=== PATIENT | female | born 1970 | race Caucasian/White ===

== ENCOUNTER → 2020-11-06 11:03 | Outpatient (CLI) | payer OTHER, SELFPAY ==
--- NOTE | 2020-11-06 11:05 | DI.MRI.S_ITS ---
PROCEDURE: MR SHOULDER RT WO CON INDICATIONS: Progressive impairment right shoulder suspect rotator cuff t TECHNIQUE: Noncontrast oblique coronal T2 fast spin echo with fat saturation, oblique sagittal T1 spin echo and T2 fast spin echo with fat saturation, axial T1 spin echo and T2 fast spin echo with fat saturation through the shoulder. COMPARISON: None. FINDINGS: Image quality: Excellent. Rotator cuff: Tendinosis and low-grade articular and bursal surface partial thickness tear involving distal supraspinatus at its insertion on the humeral head is seen extending to musculotendinous junction. Distal infraspinatus and subscapularis tendons are intact. No full-thickness rotator cuff tendon rupture. Sagittal images demonstrate no significant muscle atrophy. Bones and bursae: No bone marrow contusions or fractures. Mild acromioclavicular joint osteoarthritic changes are seen with small downward osteophyte formation depressing on musculotendinous junction of supraspinatus. Trace amount of subacromial subdeltoid bursal fluid is seen. Capsule and soft tissues: There is suggestion of superior anterior labral tear at 12 to 1 o'clock position. The glenohumeral ligaments are intact. The long head of the biceps tendon demonstrates normal location and morphology. The rotator interval appears normal, without fibrosis. The coracohumeral ligament is normal in thickness. IMPRESSION: 1. Tendinosis and low-grade articular and bursal surface partial thickness tear involving distal supraspinatus extending to musculotendinous junction. No full-thickness rotator cuff tendon rupture. 2. Mild osteoarthritis involving acromioclavicular joint as above. Trace amount of subacromial subdeltoid bursal fluid. 3. Suggestion of superior anterior labral tear at 12 to 1 o'clock position. Dictated by: Keith Bateman M.D. on 11/06/2020 at 13:33 Approved by: Keith Bateman M.D. on 11/06/2020 at 13:41
== END ==
PROVIDERS: PCP Family Medicine; Referring Provider Family Medicine; Visit Provider Family Medicine
DX: M75.101 Unspecified rotator cuff tear or rupture of right shoulder, not specified as traumatic (principal); M77.8 Other enthesopathies, not elsewhere classified; M19.011 Primary osteoarthritis, right shoulder
CPT/HCPCS: 73221

== ENCOUNTER → 2023-05-28 10:05 | Outpatient (CLI) | payer OTHER, SELFPAY ==
[2023-05-28 19:56] LABS: BUN Creatinine Ratio 18.6 (6-22); Blood Urea Nitrogen 11 mg/dL (7-17); Calcium 9.4 mg/dL (8.4-10.2); Carbon Dioxide 27 mmol/L (22-32); Chloride 106 mmol/L (98-107); Cholesterol 191 mg/dL (140-199); Estimated Glomerular Filt Rate > 60 mL/min (>60); Glucose 99 mg/dL (70-100); HDL Cholesterol 77 mg/dL (40-60); HEMOLYSIS < 15 (0-50); LDL Cholesterol Calculated 104 mg/dL (<100); Potassium 4.4 mmol/L (3.4-5.1); Sodium 137 mmol/L (137-145); Triglycerides 51 mg/dL (35-150)
== END ==
PROVIDERS: PCP Family Medicine; Visit Provider Family Medicine
DX: Z13.6 Encounter for screening for cardiovascular disorders (principal); Z13.1 Encounter for screening for diabetes mellitus
CPT/HCPCS: 80048; 80061

== ENCOUNTER → 2023-06-17 14:41 | Outpatient (CLI) | payer OTHER, SELFPAY ==
--- NOTE | 2023-06-17 14:42 | DI.MG.S_ITS ---
BILATERAL DIGITAL SCREENING MAMMOGRAM 3D/2D WITH CAD: 06/17/2023 CLINICAL: Routine screening. Family history of breast cancer. Comparison is made to exams dated: 11/04/2021 mammogram and 11/04/2020 mammogram - outside location. Both breasts are extremely dense, which lowers the sensitivity of mammography (category d />75% glandular tissue). Current study was also evaluated with a Computer Aided Detection (CAD) system. No significant masses, calcifications, or other findings are seen in either breast. There has been no significant interval change. IMPRESSION: NEGATIVE There is no mammographic evidence of malignancy. A 1 year screening mammogram is recommended. Based on Tyrer-Cuzick model (a risk assessment model), the patient's lifetime risk is 33.7% and her 10 year risk is 9.2%. If a patient has an elevated risk, a more comprehensive evaluation should be considered and/or a referral to a genetic counselor. The [employer] [employer], [employer], and NCCN Guidelines advise the consideration of Breast MRI as an adjunct to screening mammography in patients whose Lifetime risk to develop breast cancer is 20% or higher. This exam was interpreted at Station ID: [id number]. NOTE: For mammograms, a report in lay terms will be sent to the patient. Approximately 15% of breast malignancies will not be visualized mammographically. In the management of a palpable breast mass, a negative mammogram must not discourage biopsy of a clinically suspicious lesion. Electronically Signed By: Amelia mcguire/[email or web address]:06/21/2023 13:08:55 letter sent: Normal Exam ACR BI-RADS Category 1: Negative [id number]
== END ==
PROVIDERS: PCP Family Medicine; Referring Provider Family Medicine; Visit Provider Family Medicine
DX: Z12.31 Encounter for screening mammogram for malignant neoplasm of breast (principal); Z80.3 Family history of malignant neoplasm of breast
CPT/HCPCS: 77063; 77067

== ENCOUNTER 2023-08-10 06:47 | Day surgery (SDC) | payer OTHER, SELFPAY ==
[2023-08-10 07:20] VITALS: BP 117/74; PULSE 77; RESP 17; TEMP 37; O2SAT 99
[2023-08-10] MEDS: LACTATED RINGERS 1,000 ML 42 ML IV (07:28)
--- NOTE | 2023-08-10 07:44 | P.HP_ITS ---
History of Present Illness History of Present Illness Date Patient Seen: 08/10/23 Time Patient Seen: 07:44 Chief complaint: Screening Colonoscopy Narrative: 52-year-old woman here for 1st time screening colonoscopy. No family history of colon cancer. 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 Pt has 1 beer in the afternoon FHX: 2 siblings with addiction issues mom losing memory + alcohol dad first AR at 40yo. + smoker. + etoh. + heart transplant. of lung cancer sister with breast cancer at 50 yo 05/2023 Meds Home Medications and Allergies Home Medications Medication Instructions Recorded Confirmed Type acyclovir 400 mg tablet 400 mg PO 3XD #21 tabs 06/18/23 08/10/23 Rx fluticasone 250 mcg-salmeterol 50 1 inh inhalation BID #60 ea 08/04/23 08/10/23 Rx mcg/dose blistr powdr for inhalation (Advair Diskus) Allergies Allergy/AdvReac Type Severity Reaction Status Date / Time No Known Drug Allergies Allergy Verified 08/10/23 07:11 Exam Vital Signs (past 8 hours): - 08/10/23 07:20 Temperature 98.6 F Pulse Rate 77 Respiratory Rate 17 Blood Pressure 117/74 Pulse Oximetry 99 Oxygen Delivery Method Room Air Oxygen Delivery Method Room Air Narrative Exam Narrative: General adult woman alert oriented no acute distress Chest nonlabored respiration Extremities warm well perfused Assessment & Plan Assessment & Plan narrative: The patient requires colorectal screening and colonoscopy is recommended. Technical details were discussed. Risks, benefits, alternatives explained. Risks including but not limited to myocardial infarction, aspiration, bleeding, pain, missed lesion, incomplete examination, need for further radiographic studies, intestinal injury, and need for major abdominal surgery were discussed. All questions were answered to their satisfaction, and they are in agreement with this plan.
[2023-08-10 08:07] VITALS: BP 101/59; PULSE 71; RESP 12; TEMP 36.3; O2SAT 98
--- NOTE | 2023-08-10 08:09 | P.OP.COLON_ITS ---
Operative Date/Time/Diagnoses Date of procedure: 08/10/23 Time of procedure: 08:09 Pre-op diagnosis: Colorectal screening Procedure & Clinicians Study performed: Screening colonoscopy Same procedure as scheduled: Yes Indications: Colorectal screening Surgeon: Bhupinder Palumbo Procedure Notes Procedure in detail: The history and physical was performed/updated and the patient is ASA class is 1. The procedure was discussed in detail with the patient. Potential risks co mplications including infection, bleeding, missed diagnosis, perforation, need for surgery, and were explained. Their questions were answered and informed consent was obtained. Patient was brought to the procedure room and placed standard monitoring equipment. The patient's vital signs were monitored continuously throughout the entire procedure. Prior to starting time-out was performed. The patient was placed in the left lateral recumbent position. Procedural sedation was administered by anesthesia. Examination began with a thorough inspection of the perianal area there was no evidence of fissures, fistulae, external hemorrhoids or cutaneous malignancy. The colonoscopy scope was then placed into the anal canal and was advanced to the cecum, which was identified by the ileocecal valve, the appendiceal orifice and the confluence of the taenia. The scope was then slowly withdrawn examining colon thoroughly in all directions, irrigating it of any residual stool. The scope was retroflexed within the rectum The patient tolerated the procedure well. They will be discharged once criteria are met. The prep was of good/excellent quality. The withdrawl time was 7 minutes. FINDINGS * Unremarkable colonoscopy. Normal healthy colonic mucosa without polyps. Specimen(s): none sent Impression: Normal colonoscopy Post-procedure Recommendations: Colonoscopy in 10 years Disposition: same day surgery
[2023-08-10 08:10] VITALS: BP 102/67; PULSE 68; RESP 18; TEMP 37; O2SAT 99
[2023-08-10 08:14] VITALS: BP 109/47; PULSE 76; RESP 14; O2SAT 99
== END 2023-08-10 08:45 | disposition home or self-care (01) ==
PROVIDERS: PCP Family Medicine; Referring Provider Surgery; Visit Provider Surgery
PROC: 0DJD8ZZ Inspection of Lower Intestinal Tract, Via Natural or Artificial Opening Endoscopic (ICD-10-PCS; CPT 45378; principal; 2023-08-10 07:45)
DX: Z12.11 Encounter for screening for malignant neoplasm of colon (principal)
CPT/HCPCS: 45378; J2704

== ENCOUNTER → 2024-02-02 15:03 | Outpatient (CLI) | payer BC, SELFPAY ==
--- NOTE | 2024-02-02 15:05 | DI.MRI.S_ITS ---
BREAST MRI OF BOTH BREASTS: 02/02/2024 CLINICAL: High risk Screening. PROCEDURE: MR BREAST BI WO/W CON INDICATIONS: high risk breast cancer, cat d breast density TECHNIQUE: The patient was placed prone in a dedicated breast imaging coil. Precontrast axial STIR and 3D FLASH without fat saturation sequences were obtained. Both before and after bolus injection of contrast, sequential 1-minute axial 3D FLASH with fat saturation sequences for 3 time points, with subtraction images and maximum intensity projections (MIP's) generated. Delayed sagittal FLASH images with fat saturation were also obtained. Computer-aided detection, including computer algorithm analysis of MRI image data for lesion detection and characterization, pharmacokinetic analysis, with further physician review for interpretation, was performed. COMPARISON: Screening mammogram 06/17/2023, 11/04/2021, 11/04/2020 FINDINGS: Image quality: Diagnostic. There is an extreme amount of fibroglandular tissue. There is mild and symmetric background parenchymal enhancement. Right breast: There is no suspicious enhancement or lymphadenopathy. Left breast: There is an oval circumscribed mass in the left breast in the central slightly outer position at posterior depth, 7.5 cm from the nipple. The mass abuts the pectoralis and measures 0.5 x 1.0 x 0.7 cm (AP by ML by SI, , ). Retrospectively this finding may be seen on mammogram 06/17/2023 on MLO tomosynthesis slice 13. No prior tomosynthesis images are available to assess mammographic stability. Kinetic analysis demonstrates benign pattern of enhancement. There is no suspicious lymphadenopathy. IMPRESSION: PROBABLY BENIGN Left breast 1.0 cm oval circumscribed mass in the central posterior breast with benign kinetic enhancement. Finding likely corresponds to mammographic mass best seen on tomosynthesis MLO view (slice 13). No tomosynthesis images are available on prior exams to assess mammographic stability. Finding may represent a fibroadenoma and is probably benign. Recommend further evaluation with targeted ultrasound. If no sonographic correlate identified, recommend follow-up MRI in 6 months to demonstrate stability. No MRI evidence of malignancy in the right breast. Recommend routine annual screening. This exam was interpreted at Station ID: [id number]. Electronically Signed By: Cheli Parsons M.D., Ph.D. eb/:02/04/2024 11:45:06 letter sent: Additional Imaging Needed ACR BI-RADS Category 3: Probably Benign
== END ==
LOC: MRI 15:04
PROVIDERS: PCP Family Medicine; Referring Provider Family Medicine; Visit Provider Family Medicine
DX: Z12.39 Encounter for other screening for malignant neoplasm of breast (principal); N63.25 Unspecified lump in the left breast, overlapping quadrants; R92.30 Dense breasts, unspecified; Z80.3 Family history of malignant neoplasm of breast
CPT/HCPCS: 77049; A9579

== ENCOUNTER → 2024-02-24 | Outpatient (CLI) | payer BC, SELFPAY ==
--- NOTE | 2024-02-24 09:09 | DI.US.S_ITS ---
PROCEDURE: US BREAST LT LIMITED COMPARISON: None. INDICATIONS: further imaging needed from MR FINDINGS: IMPRESSION: Dictated by: Crescencio Encinas M.D. on 02/24/2024 at 15:41 Approved by: Crescencio Encinas M.D. on 02/24/2024 at 15:47
--- NOTE | 2024-02-24 09:34 | DI.US.S_ITS ---
Patient Name: MAINE ALCALA date: 1970 Sex: F Attending Physician: Jerod Indications: Date: 02/24/2024 15:46 At the request of: LOIS ROSALES Procedure: US breast LT limited LIMITED ULTRASOUND OF LEFT BREAST: 02/24/2024 CLINICAL: Abnormal MRI. Comparison is made to exams dated: 02/02/2024 breast MRI, 06/17/2023 mammogram - [facility], 11/04/2021 mammogram, and 11/04/2020 mammogram - outside location. Color flow and real-time ultrasound of the left breast 2 o'clock region were performed. Danielle scale images of the real-time examination were reviewed. There is a 0.9 cm x 0.5 cm x 0.8 cm wider than tall oval mass with a circumscribed margin in the left breast at 2 o'clock posterior depth 5 cm from the nipple. This oval mass is hypoechoic. This correlates with mammography and breast MRI findings. Color flow imaging demonstrates that there is no vascularity present. No findings are noted in the left axilla. IMPRESSION: PROBABLY BENIGN The 0.9 cm x 0.5 cm x 0.8 cm wider than tall oval mass in the left breast resembles a fibroadenoma and is probably benign. A follow-up bilateral mammogram and a left ultrasound in 6 months is recommended to demonstrate stability. Findings and recommendations were conveyed to the patient during today's evaluation. This exam was interpreted at Station ID: [id number]. Electronically Signed By: Crescencio Encinas M.D. aty/:02/24/2024 15:46:11 Continued Report - Page 2 of 2 Patient Name: MAINE ALCALA date: 1970 Sex: F Attending Physician: Jerod Indications: Date: 02/24/2024 15:46 At the request of: LOIS ROSALES Procedure: US breast LT limited letter sent: Followup Recommended ACR BI-RADS Category 3: Probably Benign
== END ==
PROVIDERS: PCP Family Medicine; Referring Provider Family Medicine; Visit Provider Family Medicine
DX: R92.8 Other abnormal and inconclusive findings on diagnostic imaging of breast (principal); N63.21 Unspecified lump in the left breast, upper outer quadrant
CPT/HCPCS: 76642

== ENCOUNTER → 2024-06-20 11:57 | Outpatient (CLI) | payer BC, SELFPAY ==
[2024-06-20 19:46] LABS: Add Manual Diff / Slide Review NO; Basophils Absolute Auto 100 /uL (0-100); Basophils Percent Auto 0.7 % (0-2); Eosinophils Absolute Auto 300 /uL (0-450); Eosinophils Percent Auto 3.7 % (2-4); Hematocrit 39.2 % (36-46); Hemoglobin 13.5 g/dL (12.0-16.0); Lymphocytes Absolute Auto 1100 /uL (1100-4500); Lymphocytes Percent Auto 14.3 % (25-40); Mean Corpuscular HGB Conc 34.5 % (30-36); Mean Corpuscular Hemoglobin 30.7 PG (26-34); Monocytes Absolute Auto 400 /uL (0-900); Monocytes Percent Auto 5.3 % (3-14); Neutrophils Absolute Auto 6000 /uL (1500-7000); Platelet Count 193 X10^3/uL (150-400); Red Cell Distribution Width 13.3 % (11.6-14.8); White Blood Cell Count 7.9 X10^3/uL (4.5-11.0)
[2024-06-20 19:53] LABS: Alanine Aminotransferase 21 IU/L (<35); Albumin 4.7 g/dL (3.5-5.0); Alkaline Phosphatase 62 U/L (38-126); Aspartate Aminotransferase 32 IU/L (14-36); BUN Creatinine Ratio 26.5 (6-22); Bilirubin Total 0.6 mg/dL (0.2-1.3); Blood Urea Nitrogen 18 mg/dL (7-17); Calcium 9.5 mg/dL (8.4-10.2); Carbon Dioxide 27 mmol/L (22-32); Chloride 102 mmol/L (98-107); Estimated Glomerular Filt Rate > 60 mL/min (>60); Globulin 2.4 g/dL (1.7-4.1); Glucose 88 mg/dL (70-99); HEMOLYSIS < 15 (0-50); Potassium 4.3 mmol/L (3.4-5.1); Sodium 138 mmol/L (137-145); Total Protein 7.1 g/dL (6.3-8.2)
[2024-06-20 19:56] LABS: Iron 120 ug/dL (37-170)
[2024-06-20 20:05] LABS: Follicle Stimulating Hormone 6.59 mIU/mL
[2024-06-20 20:20] LABS: Estradiol, Total 86.1 pg/mL
[2024-06-20 20:25] LABS: Ferritin 38 ng/mL (11-264)
== END ==
PROVIDERS: PCP Family Medicine; Visit Provider Family Medicine
DX: R23.2 Flushing (principal); Z83.49 Family history of other endocrine, nutritional and metabolic diseases
CPT/HCPCS: 80053; 82397; 82670; 82728; 83001; 83540; 85025

== ENCOUNTER → 2024-09-14 12:02 | Outpatient (CLI) | payer BC, SELFPAY ==
--- NOTE | 2024-09-14 12:04 | DI.MRI.S_ITS ---
PROCEDURE: MR KNEE LT WO CON INDICATIONS: chronic recurrent left knee pain- no improvement with PT TECHNIQUE: Noncontrast sagittal PD fast spin echo and T2 fast spin echo with fat saturation, sagittal 3-D FLASH with fat saturation; coronal T1 spin echo and PD fast spin echo with fat saturation, and axial PD fast spin echo with fat saturation through the knee. COMPARISON: None. FINDINGS: Image quality: Excellent. Anterior cruciate ligament: Intact. Posterior cruciate ligament: Intact. Medial collateral ligament: Intact. Lateral collateral ligament: Intact. Medial meniscus: Horizontal oblique tearing of the medial meniscus at the posterior horn and body extending to the inner third of the tibial articular surface. Suspected superimposed deep radial component near the posterior root attachment with mild meniscal extrusion. Lateral meniscus: Intact. Medial and lateral tendons: The semimembranosus tendon insertions appear intact. Visualized portions of the pes anserinus tendons appear normal. The popliteus tendon is intact. Iliotibial band appears normal. Anterior structures: The quadriceps and patellar tendons appear intact. No patellar subluxation. No femoral trochlear dysplasia or ventral trochlear prominence. No edema in the infrapatellar fat pad. Bones: No bone marrow contusions or fractures. Medial femorotibial cartilage: Mild partial-thickness cartilage irregularity.. Lateral femorotibial cartilage: No focal cartilage defect. Patellofemoral cartilage: Shallow cartilage fissuring at the median ridge/lateral facet of the patella. Mild partial-thickness cartilage irregularity at the inferior trochlear groove. Soft tissues: Small joint effusion. Small medial popliteal cyst. The musculature surrounding the knee is normal in bulk. IMPRESSION: 1. Complex tearing of the medial meniscus with a horizontal oblique component at the posterior horn and body extending to the inner third of the tibial articular surface as well as a deep radial component near the posterior root attachment with mild extrusion of the meniscal body. 2. Cruciate and collateral ligaments are intact. No acute trabecular bone injury. Lateral meniscus is intact. 3. 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 4. Small joint effusion. Small medial popliteal cyst. Approved by: Thomas Zamarripa M.D. on 09/14/2024 at 21:30
== END ==
LOC: MRI 12:02
PROVIDERS: PCP Family Medicine; Referring Provider Family Medicine; Visit Provider Family Medicine
DX: S83.232A Complex tear of medial meniscus, current injury, left knee, initial encounter (principal); M94.262 Chondromalacia, left knee; M25.462 Effusion, left knee; M71.22 Synovial cyst of popliteal space [Baker], left knee; M25.569 Pain in unspecified knee; G89.29 Other chronic pain
CPT/HCPCS: 73721